=== PATIENT | female | born 1970 | race Caucasian/White ===

== ENCOUNTER 2020-07-12 06:41 | Outpatient (REF) | payer BC, SELFPAY ==
[2020-07-12 08:06] LABS: MANUAL DIFF FLAG NO
[2020-07-12 08:15] LABS: Basophils Percent Auto 0.6 % (0-2); Eosinophils Absolute Auto 0.3 X10*3/uL (0.0-0.4); Eosinophils Percent Auto 5.2 % (0-4); Hematocrit 43.3 % (37-47); Hemoglobin 14.2 g/dl (12.0-16.0); Imm Gran Abs Auto 0.02 X10*3/uL (0.00-0.03); Imm Gran Pct Auto 0.4 % (0.0-0.4); Lymphocytes Absolute Auto 1.4 X10*3/uL (1.2-4.9); Lymphocytes Percent Auto 26.3 % (20-40); Mean Corpuscular HGB Conc 32.8 g/dl (31.0-35.0); Mean Corpuscular Hemoglobin 28.7 pg (27.0-33.0); Mean Corpuscular Volume 87.7 fL (80-98); Mean Platelet Volume 9.7 fL (9.4-12.3); Monocytes Absolute Auto 0.6 X10*3/uL (0.1-1.2); Monocytes Percent Auto 11.1 % (2-11); Neutrophils Percent Auto 56.4 % (45-73); Platelet Count 345 X10*3/uL (160-400); Red Blood Count 4.94 X10*6/uL (4.20-5.50); Red Cell Distribution Width 12.9 % (11.0-16.0); White Blood Count 5.2 X10*3/uL (4.8-10.8)
[2020-07-12 08:35] LABS: Alanine Aminotransferase 22 U/L (0-31); Albumin Level 4.5 g/dL (3.5-5.0); Alkaline Phosphatase 147 U/L (39-117); Anion Gap 11 (12-20); Aspartate Amino Transferase 19 U/L (5-31); Bilirubin Total 0.6 mg/dL (0.0-1.0); Blood Urea Nitrogen 14 mg/dL (9-16); Calcium 9.7 mg/dL (8.4-10.2); Carbon Dioxide 31 mmol/L (22-29); Chloride 103 mmol/L (96-108); Cholesterol 241 mg/dL; Estimated Glomerular Filt Rate > 60; Glucose Fasting 97 mg/dL (60-99); HDL Cholesterol 53 mg/dL; LDL Cholesterol Calculated 159 mg/dl; Potassium 4.6 mmol/l (3.3-5.1); Sodium 140 mmol/L (135-145); Total Protein 7.7 g/dL (6.5-8.0); Triglycerides 147 mg/dL
[2020-07-12 09:00] LABS: Thyroid Stimulating Hormone 3.13 mIU/mL (0.32-4.0)
== END 2020-07-12 06:42 | disposition home or self-care (01) ==
LOC: HO.LAB 06:41
PROVIDERS: PCP Internal Medicine; Visit Provider Internal Medicine
DX: U07.1 COVID-19 (principal); E78.00 Pure hypercholesterolemia, unspecified; I10 Essential (primary) hypertension; R73.01 Impaired fasting glucose; R74.01 Elevation of levels of liver transaminase levels
CPT/HCPCS: 36415; 80053; 80061; 84443; 85025

== ENCOUNTER 2020-10-13 11:12 | Outpatient (REF) | payer BC, SELFPAY ==
[2020-10-13 11:48] LABS: MANUAL DIFF FLAG NO
[2020-10-13 11:58] LABS: Basophils Percent Auto 0.8 % (0-2); Eosinophils Absolute Auto 0.2 X10*3/uL (0.0-0.4); Eosinophils Percent Auto 4.3 % (0-4); Hematocrit 43.3 % (37-47); Hemoglobin 14.4 g/dl (12.0-16.0); Imm Gran Abs Auto 0.01 X10*3/uL (0.00-0.03); Imm Gran Pct Auto 0.2 % (0.0-0.4); Lymphocytes Absolute Auto 1.3 X10*3/uL (1.2-4.9); Lymphocytes Percent Auto 27.3 % (20-40); Mean Corpuscular HGB Conc 33.3 g/dl (31.0-35.0); Mean Corpuscular Hemoglobin 29.2 pg (27.0-33.0); Mean Corpuscular Volume 87.8 fL (80-98); Mean Platelet Volume 9.5 fL (9.4-12.3); Monocytes Absolute Auto 0.4 X10*3/uL (0.1-1.2); Neutrophils Absolute Auto 2.9 X10*3/uL (2.0-8.3); Neutrophils Percent Auto 58.4 % (45-73); Platelet Count 334 X10*3/uL (160-400); Red Blood Count 4.93 X10*6/uL (4.20-5.50); Red Cell Distribution Width 13.2 % (11.0-16.0); White Blood Count 4.9 X10*3/uL (4.8-10.8)
[2020-10-13 12:48] LABS: Thyroid Stimulating Hormone 1.86 uIU/mL (0.32-4.0)
[2020-10-13 13:06] LABS: Alanine Aminotransferase 30 U/L (0-31); Albumin Level 4.4 g/dL (3.5-5.0); Alkaline Phosphatase 130 U/L (39-117); Anion Gap 13 (12-20); Aspartate Amino Transferase 20 U/L (5-31); Bilirubin Total 0.8 mg/dL (0.0-1.0); Blood Urea Nitrogen 16 mg/dL (9-16); Calcium 9.5 mg/dL (8.4-10.2); Carbon Dioxide 29 mmol/L (22-29); Chloride 102 mmol/L (96-108); Cholesterol 167 mg/dL; Estimated Glomerular Filt Rate > 60; Glucose Random 101 mg/dL (60-115); HDL Cholesterol 56 mg/dL; LDL Cholesterol Calculated 91 mg/dl; Potassium 4.3 mmol/l (3.3-5.1); Sodium 140 mmol/L (135-145); Total Protein 7.7 g/dL (6.5-8.0); Triglycerides 104 mg/dL
== END 2020-10-13 11:13 | disposition home or self-care (01) ==
LOC: HO.LAB 11:12
PROVIDERS: Visit Provider Internal Medicine
DX: I10 Essential (primary) hypertension (principal); E78.00 Pure hypercholesterolemia, unspecified; R73.01 Impaired fasting glucose; R74.01 Elevation of levels of liver transaminase levels
CPT/HCPCS: 36415; 80053; 80061; 84443; 85025

== ENCOUNTER 2021-01-25 15:32 | Outpatient (REF) | payer BC, SELFPAY ==
--- NOTE | ~2021-01-25 | MM_ITS ---
EXAMINATION: MM SCREENING DIGITAL BREAST TOMOSYNTHESIS, BILATERAL CLINICAL INFORMATION: Screening. Asymptomatic. The lifetime risk of breast cancer based on the Tyrer-Cuzick Model is 15%. COMPARISON: Mammography: 05/10/2019, 11/09/2018, 11/02/2018, 10/27/2017, 09/09/2017, 06/25/2016 TECHNIQUE: Digital breast tomosynthesis is performed in both the craniocaudal and mediolateral oblique views along with computer-aided detection (CAD). Synthesized 2D images are generated from the tomosynthesis. FINDINGS: The breasts are heterogeneously dense, which may obscure small masses (ACR BI-RADS breast composition Category c). There are no significant masses, abnormal calcifications, or other abnormalities. There are scattered benign calcifications again seen in both breasts. Grouped calcification 6:00 mid left breast are decreased from prior imaging. The axilla and skin contours are unremarkable. MM/MM tomosynthesis screening BI IMPRESSION: No mammographic evidence of malignancy. ASSESSMENT: BI-RADS 2: Benign RECOMMENDATION: Routine annual mammography screening. This patient's information was entered into a reminder system with a target due date for their next mammogram.
== END 2021-01-25 15:33 | disposition home or self-care (01) ==
LOC: HO.MAMMO 15:32
PROVIDERS: PCP Internal Medicine; Visit Provider Internal Medicine
DX: Z12.31 Encounter for screening mammogram for malignant neoplasm of breast (principal)
CPT/HCPCS: 77063; 77067

== ENCOUNTER → 2021-08-21 11:39 | Outpatient (BNVA) | payer BC, SELFPAY | PROVIDERS: PCP Internal Medicine; Visit Provider Obstetrics & Gynecology ==

== ENCOUNTER 2021-09-11 12:44 | Outpatient (REF) | payer BC, SELFPAY | END 2021-09-11 12:45 | disposition home or self-care (01) | LOC: HO.LAB 12:44 | PROVIDERS: PCP Internal Medicine; Visit Provider Obstetrics & Gynecology | DX: R87.610 Atypical squamous cells of undetermined significance on cytologic smear of cervix (ASC-US) (principal); R87.810 Cervical high risk human papillomavirus (HPV) DNA test positive | CPT/HCPCS: 57454; 88305; 88342; 88360 ==

== ENCOUNTER → 2021-10-01 15:42 | Outpatient (BNVA) | payer BC, SELFPAY | PROVIDERS: PCP Internal Medicine; Visit Provider Obstetrics & Gynecology ==

== ENCOUNTER 2022-02-28 08:57 | Outpatient (REF) | payer BC, SELFPAY ==
[2022-02-28 09:14] LABS: MANUAL DIFF FLAG NO
[2022-02-28 09:24] LABS: Basophils Percent Auto 0.7 % (0-2); Eosinophils Absolute Auto 0.2 X10*3/uL (0.0-0.4); Eosinophils Percent Auto 4.1 % (0-4); Hematocrit 44.1 % (37.0-47.0); Hemoglobin 14.5 g/dl (12.0-16.0); Imm Gran Abs Auto 0.01 X10*3/uL (0.00-0.03); Imm Gran Pct Auto 0.2 % (0.0-0.4); Lymphocytes Absolute Auto 1.4 X10*3/uL (1.2-4.9); Lymphocytes Percent Auto 25.1 % (20-40); Mean Corpuscular HGB Conc 32.9 g/dl (31.0-35.0); Mean Corpuscular Hemoglobin 28.8 pg (27.0-33.0); Mean Corpuscular Volume 87.5 fL (80.0-98.0); Mean Platelet Volume 9.2 fL (9.4-12.3); Monocytes Absolute Auto 0.5 X10*3/uL (0.1-1.2); Monocytes Percent Auto 9.8 % (2-11); Neutrophils Absolute Auto 3.3 x10*3/uL (2.0-8.3); Neutrophils Percent Auto 60.1 % (45-73); Platelet Count 326 X10*3/uL (160-400); Red Blood Count 5.04 X10*6/uL (4.20-5.50); Red Cell Distribution Width 13.2 % (11.0-16.0); White Blood Count 5.4 X10*3/uL (4.8-10.8)
[2022-02-28 09:51] LABS: Alanine Aminotransferase 18 U/L (0-31); Albumin Level 4.2 g/dL (3.5-5.0); Alkaline Phosphatase 121 U/L (39-117); Anion Gap 12 (12-20); Aspartate Amino Transferase 19 U/L (5-31); Bilirubin Total 0.7 mg/dL (0.0-1.0); Blood Urea Nitrogen 21 mg/dL (9-16); Calcium 9.6 mg/dL (8.4-10.2); Carbon Dioxide 24 mmol/L (22-29); Chloride 107 mmol/L (96-108); Cholesterol 243 mg/dL; Estimated Glomerular Filt Rate > 60; Glucose Fasting 103 mg/dL (60-99); HDL Cholesterol 53 mg/dL; LDL Cholesterol Calculated 169 mg/dl; Potassium 4.2 mmol/L (3.3-5.1); Sodium 139 mmol/L (135-145); Total Protein 7.7 g/dL (6.5-8.0); Triglycerides 105 mg/dL
== END 2022-02-28 08:58 | disposition home or self-care (01) ==
LOC: HO.LAB 08:57
PROVIDERS: PCP Internal Medicine; Visit Provider Internal Medicine
DX: Z00.00 Encounter for general adult medical examination without abnormal findings (principal); E78.00 Pure hypercholesterolemia, unspecified; F32.9 Major depressive disorder, single episode, unspecified; I10 Essential (primary) hypertension; N81.10 Cystocele, unspecified
CPT/HCPCS: 36415; 80053; 80061; 85025

== ENCOUNTER 2022-06-12 14:43 | Outpatient (REF) | payer BC, SELFPAY ==
--- NOTE | ~2022-06-12 | MM_ITS ---
EXAMINATION: MM SCREENING DIGITAL BREAST TOMOSYNTHESIS, BILATERAL CLINICAL INFORMATION: Screening. Asymptomatic. The lifetime risk of breast cancer based on the Tyrer-Cuzick Model is 15%. COMPARISON: Mammography: 01/25/2021, 05/10/2019, 11/09/2018, 11/02/2018 TECHNIQUE: Digital breast tomosynthesis is performed in both the craniocaudal and mediolateral oblique views along with computer-aided detection (CAD). Synthesized 2D images are generated from the tomosynthesis. FINDINGS: The breasts are heterogeneously dense, which may obscure small masses (ACR BI-RADS breast composition Category c). There are no significant masses, abnormal calcifications, or other abnormalities. There are some scattered punctate calcifications in both breasts. Grouped calcifications mid 6:00 left breast noted in 2019 have decreased over time. The axilla and skin contours are unremarkable. MM/MM tomosynthesis screening BI IMPRESSION: No mammographic evidence of malignancy. ASSESSMENT: BI-RADS 2: Benign RECOMMENDATION: Routine annual mammography screening. This patient's information was entered into a reminder system with a target due date for their next mammogram.
== END 2022-06-12 14:44 | disposition home or self-care (01) ==
LOC: HO.MAMMO 14:43
PROVIDERS: PCP Internal Medicine; Visit Provider Internal Medicine
DX: Z12.31 Encounter for screening mammogram for malignant neoplasm of breast (principal)
CPT/HCPCS: 77063; 77067

== ENCOUNTER 2022-12-18 10:26 | Outpatient (REF) | payer BC, SELFPAY ==
[2022-12-18 10:41] LABS: MANUAL DIFF FLAG NO
[2022-12-18 11:47] LABS: Basophils Percent Auto 0.8 % (0-2); Eosinophils Absolute Auto 0.2 X10*3/uL (0.0-0.4); Eosinophils Percent Auto 4.6 % (0-4); Hematocrit 43.2 % (37.0-47.0); Hemoglobin 14.2 g/dl (12.0-16.0); Imm Gran Abs Auto 0.01 X10*3/uL (0.00-0.03); Imm Gran Pct Auto 0.2 % (0.0-0.4); Lymphocytes Absolute Auto 1.2 X10*3/uL (1.2-4.9); Lymphocytes Percent Auto 23.7 % (20-40); Mean Corpuscular HGB Conc 32.9 g/dl (31.0-35.0); Mean Corpuscular Hemoglobin 29.2 pg (27.0-33.0); Mean Corpuscular Volume 88.7 fL (80.0-98.0); Mean Platelet Volume 9.4 fL (9.4-12.3); Monocytes Absolute Auto 0.5 X10*3/uL (0.1-1.2); Monocytes Percent Auto 9.4 % (2-11); Neutrophils Absolute Auto 3.1 x10*3/uL (2.0-8.3); Neutrophils Percent Auto 61.3 % (45-73); Platelet Count 327 X10*3/uL (160-400); Red Blood Count 4.87 X10*6/uL (4.20-5.50); Red Cell Distribution Width 13.3 % (11.0-16.0)
[2022-12-18 12:21] LABS: Alanine Aminotransferase 33 U/L (0-31); Albumin Level 4.6 g/dL (3.5-5.0); Alkaline Phosphatase 138 U/L (39-117); Anion Gap 15 (12-20); Aspartate Amino Transferase 22 U/L (5-31); Bilirubin Total 0.8 mg/dL (0.0-1.0); Blood Urea Nitrogen 11 mg/dL (9-16); Carbon Dioxide 28 mmol/L (22-29); Chloride 103 mmol/L (96-108); Cholesterol 167 mg/dL; Estimated Glomerular Filt Rate > 60; Glucose Random 91 mg/dL (60-115); HDL Cholesterol 58 mg/dL; LDL Cholesterol Calculated 83 mg/dl; Potassium 4.2 mmol/L (3.3-5.1); Sodium 142 mmol/L (135-145); Thyroid Stimulating Hormone 8.83 uIU/mL (0.32-4.0); Total Protein 7.7 g/dL (6.5-8.0); Triglycerides 130 mg/dL
== END 2022-12-18 10:27 | disposition home or self-care (01) ==
LOC: HO.LAB 10:26
PROVIDERS: PCP Internal Medicine; Visit Provider Internal Medicine
DX: Z00.00 Encounter for general adult medical examination without abnormal findings (principal); E78.00 Pure hypercholesterolemia, unspecified; I10 Essential (primary) hypertension; R13.19 Other dysphagia
CPT/HCPCS: 36415; 80053; 80061; 84443; 85025

== ENCOUNTER 2023-02-11 14:17 | Outpatient (REF) | payer BC, SELFPAY ==
[2023-02-11 17:02] LABS: Thyroid Stimulating Hormone 7.87 uIU/mL (0.32-4.0)
== END 2023-02-11 14:18 | disposition home or self-care (01) ==
LOC: HO.LAB 14:17
PROVIDERS: PCP Internal Medicine; Visit Provider Internal Medicine
DX: Z01.419 Encounter for gynecological examination (general) (routine) without abnormal findings (principal); E03.8 Other specified hypothyroidism; I10 Essential (primary) hypertension; N30.01 Acute cystitis with hematuria
CPT/HCPCS: 36415; 84443

== ENCOUNTER 2023-02-11 15:04 | Outpatient (REF) | payer BC, SELFPAY ==
[2023-02-14 04:18] LABS: HPV mRNA E6/E7 rflx Not Detected (Not Detected)
== END 2023-02-11 15:05 | disposition home or self-care (01) ==
LOC: HO.LNP 15:04
PROVIDERS: Visit Provider Obstetrics & Gynecology
DX: Z01.419 Encounter for gynecological examination (general) (routine) without abnormal findings (principal); R87.610 Atypical squamous cells of undetermined significance on cytologic smear of cervix (ASC-US); R87.810 Cervical high risk human papillomavirus (HPV) DNA test positive
CPT/HCPCS: 87624; 88142

== ENCOUNTER 2023-07-21 10:17 | Outpatient (REF) | payer OTHER, SELFPAY ==
--- NOTE | ~2023-07-21 | FL_ITS ---
EXAMINATION: FL BARIUM SWALLOW CLINICAL INFORMATION: Dysphagia COMPARISON: None available. TECHNIQUE: Barium swallow examination is performed using fluoroscopic evaluation in addition to multiple fluoroscopic spot views. The patient is imaged both upright and prone and using both thick and thin sulfate along with effervescent granules. Barium tablet was also administered. Fluoroscopy time: 48 seconds DAP: 49 dGycm2 Images: 24 images FINDINGS: The swallowing mechanism is normal. No aspiration or penetration is seen. There is mild gastroesophageal reflux. There is slight mucosal irregularity questionable mild distal esophagitis. Esophageal motility is normal. No hernia, mass or stricture is seen. There was temporary stasis of the barium tablet the GE junction. FL/FL barium swallow IMPRESSION: Gastroesophageal reflux and question mild distal esophagitis.
== END 2023-07-21 10:18 | disposition home or self-care (01) ==
LOC: HO.XRAY 10:17
PROVIDERS: PCP Internal Medicine; Visit Provider Otolaryngology
DX: R13.10 Dysphagia, unspecified (principal)
CPT/HCPCS: 74220

== ENCOUNTER → 2023-07-21 10:25 | Outpatient (BNV) | payer BC, SELFPAY | PROVIDERS: PCP Internal Medicine; Visit Provider Radiology Diagnostic Radiology | DX: R13.10 Dysphagia, unspecified (principal) | CPT/HCPCS: 74221 ==

== ENCOUNTER 2023-11-07 13:39 | Outpatient (AMB) | payer OTHER, SELFPAY ==
[2023-11-07 13:38] VITALS: BP 130/80; PULSE 73; TEMP 36.6; O2SAT 99; BMI 23.6
--- NOTE | 2023-11-07 13:38 | MHC.OFFWIV ---
Intake Vital Signs 11/07/23 13:38 Height 5 ft 2 in Weight 129 lb BMI 23.6 BP 130/80 Blood Pressure Location Rt brachial Position Sitting Pulse 73 Pulse Source Pulse Oximeter Temp 97.9 F Temp Source Oral Pulse Oximetry (%) 99 Oxygen Delivery Method Room Air Intake Visit Reasons: EST/right foot pain (lobby) Intake Note: Pt is here c/o right foot pain. Pt states no falls or injuries. 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 Sexual orientation: Straight/Heterosexual Gender identity: Female Female Reproductive History Menstrual Age of Menarche: 19 Review of Systems Const All systems reviewed & are unremarkable except as noted in HPI and below Physical Exam Vital Signs: Last Vital Signs Temp 97.9 F 11/07/23 13:38 Pulse 73 11/07/23 13:38 BP 130/80 11/07/23 13:38 Pulse Ox 99 11/07/23 13:38 Oxygen Delivery Method Room Air 11/07/23 13:38 BMI result Body Mass Index 23.6 Const Orientation/consciousness: patient oriented x3 Neuro General: patient oriented x3, gait normal, moves all extremities and no focal motor deficits Motor exam (neuro): 5/5 motor strength present throughout Extrem General: Yes normal to inspection and Yes full ROM Right lower extremity: normal to inspection, full ROM, normal capillary refill, no joint enlargement and foot Details: normal capillary refill, normal to inspection and no edema; no tenderness; no cyanosis and no edema Left lower extremity: normal to inspection and full ROM Assessment & Plan Assessment & Plan (1) Plantar fasciitis of right foot: Code(s): M72.2 - Plantar fascial fibromatosis Plan: - Ibuprofen/Acetaminophen for pain relief - Rest feet - Foot massage - Comfortable shoes at work - Ice/heat on/off - F/U with PCP if pain not better - Might benefit from PT Medications: New naproxen 500 mg PO BID PRN 30 tabs 0RF pain M72.2 - Plantar fascial fibromatosis Coding Level of Care Code Est Pt Level 3 (85310) Diagnoses Plantar fasciitis of right foot M72.2 Time Spent (min) 15
== END 2023-11-07 16:10 | disposition home or self-care (01) ==
PROVIDERS: PCP Internal Medicine; Visit Provider Nurse Practitioner Family
DX: M72.2 Plantar fascial fibromatosis (principal)
CPT/HCPCS: 99213

== ENCOUNTER 2023-11-15 09:08 | Outpatient (REF) | payer OTHER, SELFPAY ==
[2023-11-15 09:45] LABS: MANUAL DIFF FLAG NO
[2023-11-15 10:35] LABS: Basophils Percent Auto 0.8 % (0-2); Eosinophils Absolute Auto 0.2 X10*3/uL (0.0-0.4); Eosinophils Percent Auto 4.5 % (0-4); Hematocrit 45.3 % (37.0-47.0); Hemoglobin 15.3 g/dl (12.0-16.0); Imm Gran Abs Auto 0.02 X10*3/uL (0.00-0.03); Imm Gran Pct Auto 0.4 % (0.0-0.4); Lymphocytes Absolute Auto 1.4 X10*3/uL (1.2-4.9); Lymphocytes Percent Auto 28.2 % (20-40); Mean Corpuscular HGB Conc 33.8 g/dl (31.0-35.0); Mean Corpuscular Hemoglobin 29.4 pg (27.0-33.0); Mean Corpuscular Volume 86.9 fL (80.0-98.0); Mean Platelet Volume 9.5 fL (9.4-12.3); Monocytes Absolute Auto 0.4 X10*3/uL (0.1-1.2); Monocytes Percent Auto 8.2 % (2-11); Neutrophils Absolute Auto 2.8 x10*3/uL (2.0-8.3); Neutrophils Percent Auto 57.9 % (45-73); Platelet Count 359 X10*3/uL (160-400); Red Blood Count 5.21 X10*6/uL (4.20-5.50); White Blood Count 4.9 X10*3/uL (4.8-10.8)
[2023-11-15 11:16] LABS: Alanine Aminotransferase 26 U/L (0-31); Albumin Level 4.5 g/dL (3.5-5.0); Alkaline Phosphatase 136 U/L (39-117); Anion Gap 9 (12-20); Aspartate Amino Transferase 22 U/L (5-31); Bilirubin Total 0.6 mg/dL (0.0-1.0); Blood Urea Nitrogen 12 mg/dL (9-16); Calcium 10.2 mg/dL (8.4-10.2); Carbon Dioxide 30 mmol/L (22-29); Chloride 104 mmol/L (96-108); Cholesterol 207 mg/dL (<200); Estimated Glomerular Filt Rate > 60; Glucose Random 92 mg/dL (60-115); HDL Cholesterol 59 mg/dL (>40); LDL Cholesterol Calculated 121 mg/dL (<100); Potassium 4.1 mmol/L (3.3-5.1); Sodium 139 mmol/L (135-145); Total Protein 8.1 g/dL (6.5-8.0); Triglycerides 136 mg/dL (<150)
[2023-11-15 11:32] LABS: Thyroid Stimulating Hormone 9.24 uIU/mL (0.32-4.0)
== END 2023-11-15 09:09 | disposition home or self-care (01) ==
LOC: HO.LAB 09:08
PROVIDERS: PCP Internal Medicine; Visit Provider Internal Medicine
DX: E03.8 Other specified hypothyroidism (principal); E78.00 Pure hypercholesterolemia, unspecified; G47.00 Insomnia, unspecified; I10 Essential (primary) hypertension
CPT/HCPCS: 36415; 80053; 80061; 84443; 85025

== ENCOUNTER 2023-11-15 11:32 | Outpatient (REF) | payer OTHER, SELFPAY | END 2023-11-15 11:33 | disposition home or self-care (01) | LOC: HO.10HDLNP 11:32 | PROVIDERS: Visit Provider Internal Medicine | DX: R10.13 Epigastric pain (principal) | CPT/HCPCS: 87338 ==

== ENCOUNTER 2023-12-24 14:21 | Outpatient (REF) | payer OTHER, SELFPAY ==
--- NOTE | ~2023-12-24 | MM_ITS ---
EXAMINATION: MM SCREENING DIGITAL BREAST TOMOSYNTHESIS, BILATERAL CLINICAL INFORMATION: Screening. Asymptomatic. COMPARISON: Mammography: This study is compared with prior exams dating back to 2018. TECHNIQUE: Digital breast tomosynthesis is performed in both the craniocaudal and mediolateral oblique views along with computer-aided detection (CAD). Synthesized 2D images are generated from the tomosynthesis. FINDINGS: The breasts are heterogeneously dense, which may obscure small masses (ACR BI-RADS breast composition Category c). There are no significant masses, abnormal calcifications, or other abnormalities. Few, bilateral, unchanged, benign calcifications are present. MM/MM tomosynthesis screening BI IMPRESSION: No mammographic evidence of malignancy. ASSESSMENT: BI-RADS BI-RADS 2 - Benign Findings RECOMMENDATION: Routine annual mammography screening. 1 year F/U This examination should not preclude the clinical evaluation of a suspicious palpable abnormality. This patient's information was entered into a reminder system with a target due date for their next mammogram.
== END 2023-12-24 14:22 | disposition home or self-care (01) ==
LOC: HO.MAMMO 14:21
PROVIDERS: PCP Internal Medicine; Visit Provider Internal Medicine
DX: Z12.31 Encounter for screening mammogram for malignant neoplasm of breast (principal)
CPT/HCPCS: 77063; 77067

== ENCOUNTER → 2023-12-24 14:30 | Outpatient (BNV) | payer OTHER, SELFPAY | PROVIDERS: PCP Internal Medicine; Visit Provider Radiology Diagnostic Radiology | DX: Z12.31 Encounter for screening mammogram for malignant neoplasm of breast (principal) | CPT/HCPCS: 77063; 77067 ==

== ENCOUNTER 2024-02-13 06:45 | Day surgery (SDC) | payer OTHER, SELFPAY ==
[2024-02-12 06:48] VITALS: BMI 22.1
--- NOTE | 2024-02-12 10:56 | P.CONAN_ITS ---
Documented by User: Emili Inman NP 02/12/24 10:57 HPI - Anesthesia Eval Consult details Narrative: 53yo F for Upper Endoscopy and Colonoscopy PMFSH Active Problems Active Problems: All Active Problems Well woman exam (Acute) Sore throat (Acute) ASCUS with positive high risk HPV cervical (Acute) Past Medical History Medical History GERD (gastroesophageal reflux disease) Urinary incontinence Thyroid disease Dysplasia of cervix, low grade (JONES 1) High cholesterol Hypertension Family History Family History Mother Breast CA HTN (hypertension) Maternal Grandmother Diabetes Maternal Uncle Skin cancer Surgical History Surgical History Hx of dilation and curettage Social History Social History Household Members: Spouse Housing: Apartment Alcohol intake: former Patient Tobacco Use Status: Former Tobacco user Quit Date: 5 years Use of substances other than those prescribed or required for medical reasons: No Are you DNR?: No Advance Directives: No Advance Directives Information Provided: Yes Current occupational status: employed 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 Sexual orientation: Straight/Heterosexual Gender identity: Female Meds Allergies Allergy/AdvReac Type Severity Reaction Status Date / Time No Known Allergies Allergy Verified 11/07/23 14:04 Home Medications ?Medication ?Instructions ?Recorded ?Confirmed ?Last Taken ?Type levothyroxine 50 mcg tablet 50 mcg PO DAILY 02/12/24 02/12/24 Unknown History multivitamin 1 tab PO DAILY 02/12/24 02/12/24 Unknown History omeprazole 20 mg capsule,delayed 20 mg PO DAILY 02/12/24 02/12/24 Unknown History release rosuvastatin 40 mg tablet 40 mg PO DAILY 02/12/24 02/12/24 Unknown History Exam Height,Weight and Vital Signs: Height 5 ft 2 in Weight 54.885 kg Assessment and Plan Assessment Anesthesia Assessment: Chart Reviewed Documented by User: Shanna Luna MD 02/13/24 07:44 PMFSH Past Medical History Medical History GERD (gastroesophageal reflux disease) Urinary incontinence Thyroid disease Dysplasia of cervix, low grade (JONES 1) High cholesterol Hypertension Family History Family History Mother Breast CA HTN (hypertension) Maternal Grandmother Diabetes Maternal Uncle Skin cancer Surgical History Surgical History Hx of dilation and curettage History of Problems with Anesthesia: No Social History Social History Household Members: Spouse Housing: Apartment Alcohol intake: former Patient Tobacco Use Status: Former Tobacco user Quit Date: 5 years Use of substances other than those prescribed or required for medical reasons: No Are you DNR?: No Advance Directives: No Advance Directives Information Provided: Yes Current occupational status: employed 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 Sexual orientation: Straight/Heterosexual Gender identity: Female Meds Allergies Allergy/AdvReac Type Severity Reaction Status Date / Time No Known Allergies Allergy Verified 11/07/23 14:04 Home Medications ?Medication ?Instructions ?Recorded ?Confirmed ?Last Taken ?Type levothyroxine 50 mcg tablet 50 mcg PO DAILY 02/12/24 02/12/24 Unknown History multivitamin 1 tab PO DAILY 02/12/24 02/12/24 Unknown History omeprazole 20 mg capsule,delayed 20 mg PO DAILY 02/12/24 02/12/24 Unknown History release rosuvastatin 40 mg tablet 40 mg PO DAILY 02/12/24 02/12/24 Unknown History Exam Airway Mallampati Class: II TM Dist: >3cm Neck ROM: Full Loose/Missing/Broken Teeth: No Heart: RRR Lungs: CTA Assessment and Plan Assessment Anesthesia Assessment: Anesthesia Plan Discussed Final Anesthetic Review History of Problems with Anesthesia: No NPO: Yes ASA Class: II Final Preanesthetic Review: Meds/Allgs Chart Reviewed, Consent Obtained/Reviewed and Anes Risks/Benef Reviewed Patient Risk: Low Procedure Risk: Low Anesthetic Plan Anesthetic Plan: MAC: Disposition: Standard PACU
[2024-02-13 07:08] VITALS: BP 138/78; PULSE 65; RESP 18; TEMP 36.3; O2SAT 98; BMI 21.6
[2024-02-13 07:17] VITALS: BMI 21.6
[2024-02-13] MEDS: Lactated Ringers 1,000 ML 100 ML IVCONT (07:46)
--- NOTE | 2024-02-13 08:07 | P.HPSUR_ITS ---
Pre-Procedural Eval Section A - 24 Hr Update-Section A only Date of Service: 02/13/24 Section B - Complete if H&P > 30 days Chief Complaint: Gastro-esophageal reflux disease without esophagit Details of Present Illness: see H&P no changes Relevant Family History (Specify if Yes): No Relevant Social History: None Present Medications: see Short Stay Collaborative assessment Medical History: No relevant PMH History of Previous Operations: No relevant previous surgery Allergies: Allergies Allergy/AdvReac Type Severity Reaction Status Date / Time No Known Allergies Allergy Verified 02/13/24 07:47 Review of Systems Sugical H&P ROS: Negative: Constitution, Cardiovascular, Respiratory, Neurological, Psychiatric, Hem-Onc, Allergic/Immunologic, Gastrointestinal, Genitourinary, Musculoskeletal, Integumentary, Endocrine and Eyes/Ears/N ose/Throat Exam Surgical H&P Exam: Normal: HEENT, Normal: Heart, Normal: Lungs, Normal: Extremities, Normal: Abdomen, Normal: Skin and Normal: Neurological Plan Diagnosis/Plan: Unchanged I have reviewed the history and physical and performed a pertinent physical examination on my patient. No changes have occurred unless specified. Time Spent With Patient Time: Total time managing care of this patient today ____ minutes.
[2024-02-13 09:03] VITALS: BP 122/66; PULSE 58; RESP 18; TEMP 36.6; O2SAT 100
[2024-02-13 09:21] VITALS: BP 146/77; PULSE 57; RESP 16; TEMP 36.6; O2SAT 100
--- NOTE | 2024-02-13 10:54 | OP_ITS ---
DATE OF SERVICE: 02/13/2024 SURGEON: Isaías Ingram MD INDICATIONS: 1. Gastroesophageal reflux disease. 2. Colon cancer screening. 3. H. pylori infection. PREOPERATIVE DIAGNOSIS: POSTOPERATIVE DIAGNOSIS: PROCEDURE PERFORMED: ESTIMATED BLOOD LOSS: COMPLICATIONS: ANESTHESIA: ASSISTANTS: SPECIMENS: PROCEDURES PERFORMED: Upper endoscopy with biopsy and colonoscopy to the terminal ileum with biopsy. MEDICATIONS: Monitored anesthesia. PROCEDURE DESCRIPTION: The history and physical performed. The risks and benefits of the procedure were explained to the patient and informed consent was obtained. The patient was placed in the left lateral decubitus position. The Olympus video gastroscope was introduced through the esophagus to the stomach and duodenum. Examination was performed and the scope was removed. She was repositioned for the colonoscopy. A digital rectal examination was performed and found to be normal. The Olympus pediatric video colonoscope was introduced through the anus to the rectum and advanced to the cecum. The cecum was identified by translumination, palpation, identification of the ileocecal valve. Examination was performed. The scope was removed. She tolerated both procedures well and transferred to the recovery room in stable condition. FINDINGS: UPPER ENDOSCOPY: Esophagus: Esophagus was normal. Biopsies were obtained from the EG junction. Stomach: The stomach showed patchy erythema consistent with mild gastritis, mainly in the body. Enteral biopsies were obtained because of the patient's history of previous H. pylori infection. Duodenum: The bulb and second portion were normal. COLONOSCOPY: The terminal ileum was identified and appeared normal. The visualized colonic mucosa was normal. Two polyps were identified and removed with the biopsy forceps, both measured less than 10 mm. These were located at 90 cm and 70 cm. No other polyps were identified. There were some liquid stool limiting the sensitive examination for the textures and small polyps. Retroflex examination was normal. IMPRESSION: 1. Gastritis. 2. Colon polyps. RECOMMENDATIONS: Followup the biopsy results. MD AUBRIE Reyes/RAHULL / [id number]
== END 2024-02-13 09:32 | disposition home or self-care (01) ==
PROVIDERS: PCP Internal Medicine; Visit Provider Internal Medicine Gastroenterology
PROC: (CPT 45380; principal; 2024-02-13 08:20)
DX: Z12.11 Encounter for screening for malignant neoplasm of colon (principal); D12.6 Benign neoplasm of colon, unspecified; K63.5 Polyp of colon; K21.9 Gastro-esophageal reflux disease without esophagitis; K29.70 Gastritis, unspecified, without bleeding; I10 Essential (primary) hypertension; Z86.19 Personal history of other infectious and parasitic diseases
CPT/HCPCS: 45380; 43239; 88305; 88313; 88342; J2704

== ENCOUNTER 2024-02-18 09:15 | Outpatient (REF) | payer OTHER, SELFPAY ==
[2024-02-18 10:29] LABS: Cholesterol 139 mg/dL (<200); HDL Cholesterol 57 mg/dL (>40); LDL Cholesterol Calculated 67 mg/dL (<100); Triglycerides 78 mg/dL (<150)
[2024-02-18 10:39] LABS: Thyroid Stimulating Hormone 2.65 uIU/mL (0.32-4.0)
== END 2024-02-18 09:16 | disposition home or self-care (01) ==
LOC: HO.LAB 09:15
PROVIDERS: PCP Internal Medicine; Visit Provider Internal Medicine
DX: Z00.00 Encounter for general adult medical examination without abnormal findings (principal); B96.81 Helicobacter pylori [H. pylori] as the cause of diseases classified elsewhere; E03.8 Other specified hypothyroidism; F32.9 Major depressive disorder, single episode, unspecified; Z80.3 Family history of malignant neoplasm of breast
CPT/HCPCS: 36415; 80061; 84443

== ENCOUNTER 2024-08-20 06:22 | Outpatient (REF) | payer OTHER, SELFPAY ==
[2024-08-20 08:03] LABS: Alanine Aminotransferase 27 U/L (0-31); Albumin Level 4.2 g/dL (3.5-5.0); Alkaline Phosphatase 113 U/L (39-117); Anion Gap 8 (12-20); Aspartate Amino Transferase 21 U/L (5-31); Bilirubin Total 0.6 mg/dL (0.0-1.0); Blood Urea Nitrogen 12 mg/dL (9-16); Carbon Dioxide 29 mmol/L (22-29); Chloride 105 mmol/L (96-108); Estimated Glomerular Filt Rate > 60; Glucose Random 89 mg/dL (60-115); Potassium 3.3 mmol/L (3.3-5.1); Sodium 139 mmol/L (135-145); Total Protein 7.2 g/dL (6.5-8.0)
== END 2024-08-20 06:23 | disposition home or self-care (01) ==
LOC: HO.LAB 06:22
PROVIDERS: PCP Internal Medicine; Visit Provider Internal Medicine
DX: E03.8 Other specified hypothyroidism (principal); F40.243 Fear of flying; Z68.20 Body mass index [BMI] 20.0-20.9, adult; Z80.3 Family history of malignant neoplasm of breast
CPT/HCPCS: 36415; 80053; 84443

== ENCOUNTER 2024-12-03 11:48 | Outpatient (AMB) | payer OTHER, SELFPAY ==
[2024-12-03 11:57] VITALS: BP 128/88; PULSE 87; TEMP 36.7; O2SAT 98
--- NOTE | 2024-12-03 11:57 | AM.OFFWIN_ITS ---
Intake Vital Signs 12/03/24 11:57 Weight 116 lb BP 128/88 Blood Pressure Location Rt brachial Position Sitting Pulse 87 Pulse Source Pulse Oximeter Temp 98.1 F Temp Source Oral Pulse Oximetry (%) 98 Oxygen Delivery Method Room Air Intake Visit Reasons: EP vomiting, diarrhea, body aches Intake Note: Patient here vomiting and diarrhea that started last week. Patient Tobacco Use Status: Former Tobacco user Allergies No Known Allergies Allergy (Verified 12/03/24 12:03) Do you need a note to return to daycare/school/sports/work: Yes HPI HPI Comments History of Present Illness Details This is a 53-year-old female who presented to the walk-in clinic complaining of nausea/vomiting/diarrhea x 1 week. Patient states she developed several episodes of nausea/vomiting and diarrhea daily about 10 days ago. She states this lasted for about 2 days and then resolved without intervention. She states that her nausea/vomiting and diarrhea then returned again 3 days ago. She denies any unusual or abnormal food exposures. She denies any recent medication changes or antibiotic use. She denies any positive sick contacts with similar symptoms. She denies any recent travel prior to her symptom onset. She denies any melena/hematochezia or hematemesis. She denies any fever/chills but states that she does get diaphoretic with the vomiting. She reports some mild epigastric pain but denies any significant abdominal pain. She states she has had a difficult time keeping solids and liquids down due to her symptoms and she is feeling weak and fatigued. She denies history of abdominal surgeries. 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 Sexual orientation: Straight/Heterosexual Gender identity: Female Female Reproductive History Menstrual Age of Menarche: 19 Review of Systems Const All systems reviewed & are unremarkable except as noted in HPI and below Reports no additional complaints Eyes Reports no additional complaints ENT Reports no additional complaints Card Reports no additional complaints Resp Reports no additional complaints GI Reports no additional complaints Reports no additional complaints Musc Reports no additional complaints Skin/Breast Reports system reviewed and no additional complaints, except as documented Neuro Reports no additional complaints Psych Reports no additional complaints Endo Reports no additional complaints Pedro Luis/Lymph Reports no additional complaints Aller/Immun Reports no additional complaints Physical Exam Vital Signs: Last Vital Signs Temp 98.1 F 12/03/24 11:57 Pulse 87 12/03/24 11:57 BP 128/88 12/03/24 11:57 Pulse Ox 98 12/03/24 11:57 Oxygen Delivery Method Room Air 12/03/24 11:57 Const Other: Vital signs reviewed. Constitutional: Non-toxic appearing. No acute distress. Well-developed and well-nourished. HEENT: Normocephalic and atraumatic. Skin: Warm and dry. No rashes or lesions noted. Neck: Full and painless range of motion. No cervical lymphadenopathy. Cardio: Regular rate and rhythm. No murmurs, gallops, or rubs. No lower extremity edema. No JVD. Pulmonary: No respiratory distress. No accessory muscle usage. Clear to auscultation bilaterally without wheezing, crackles, or rhonchi. Gastrointestinal: Soft, non-tender, and non-distended in all 4 quadrants. Hypoactive bowel sounds in all 4 quadrants. Musculoskeletal: Normal range of motion in joints throughout the body. No deformity or other signs of injury. Neuro: Alert and oriented x4. Cranial nerves 2-12 grossly intact. No focal deficits appreciated. Psych: Normal mood and affect. Office Meds ondansetron 4 mg disintegrating tablet Performing Provider: ALVIN Flores Performing Location[place] [facility] Administered by: ALVIN Flores on 12/03/24 12:40 Dose Route Admin Location Dispensed Lot Number Expiration Date [place] Over[employer] Sleeve Setter 4 mg translingual 4 mg 01/05/28 [id number] [facility] Assessment & Plan Assessment & Plan (1) Viral gastroenteritis: Code(s): A08.4 - Viral intestinal infection, unspecified Plan: This is a 53-year-old female who presented to the walk-in clinic complaining of nausea/vomiting/diarrhea for the past 3 days. She denies any melena/hematochezia, abdominal pain, or fever/chills. On physical examination, she has hypoactive bowel sounds but her abdomen is soft, non-tender, and non- distended. History and physical most consistent with viral gastroenteritis. Low suspicion for bowel obstruction given patient continues to have bowel movements. Low suspicion for acute abdomen such as acute appendicitis, cholecystitis, or pancreatitis given benign abdominal exam and lack of fever/chills and abdominal pain. Patient was given a dose of PO ondansetron 4 mg in the office and she was able to keep water down with improvement in her symptoms. She was sent to the lab to provide stool sample for a GI Panel and she will be called with the results. She was given a prescription for p.o. ondansetron 8 mg every 8 hours as needed for nausea/vomiting. She was also given a prescription for p.o. famotidine 20 mg every night at bedtime given complaints of epigastric pain, which is likely related to persistent vomiting. She was instructed to maintain adequate hydration with water, sports drinks, or bone/chicken broth and advance her diet slowly as tolerated. She was instructed to proceed directly to the emergency room if she were to develop constipation/obstipation, fever/chills, abdominal pain, melena/hematochezia, or if she is still unable to keep solids/liquids down despite anti-emetic treatment. Patient verbalized understanding and is agreeable with the plan. Orders: Orders AMB Ondansetron Adult Dose Today K52.9 - Noninfective gastroenteritis and colitis, unspecified GI Panel Today K52.9 - Noninfective gastroenteritis and colitis, unspecified Medications: New ondansetron 8 mg PO Q8H PRN 14 tabs 0RF nausea and vomiting famotidine 20 mg PO BEDTIME 14 tabs 0RF Coding Level of Care Code Est Pt Level 3 (89684) Diagnoses Viral gastroenteritis A08.4
--- OUTSIDE RECORDS SUMMARY | 2024-12-03 14:08 | XMS_ITS ---
Author Organization [facility] Address [address] [place] [address] Care Team Providers Care Networker Name Role Phone Johana Gay Primary Care Provider Unavailab Isaías Canela Jr REASON FOR VISIT screening,gerd PROBLEMS Problem Type ICD Code Onset Dates Problem Status W/U Status Risk SNOMED Code Notes Problem Gastro-esophagea l reflux disease without esophagitis (K21.9) Active confirmed Gastro-esophage al reflux disease without esophagitis ([id number]) Encounters Encounter Location Date Provider Diagnosis [facility] Out[facility] [address], [place] [id number] 02/13/2024 Isaías Ingram Jr Encounter for screening colonoscopy Z12.11 ; Colon polyps K63.5 ; Other specified bacterial intestinal infections A04.8 and Gastro-esophageal reflux disease without esophagitis K21.9 ASSESSMENTS Encounter Date Diagnosis Assessment Notes Treatment Notes Treatment Clinical Notes 02/13/2024 Encounter for screening colonoscopy (ICD-10 - Z12.11) 02/13/2024 Colon polyps (ICD-10 - K63.5) 02/13/2024 Other specified bacterial intestinal infections (ICD-10 - A04.8) 02/13/2024 Gastro-esophageal reflux disease without esophagitis (ICD-10 - K21.9) PLAN OF TREATMENT No Information
--- OUTSIDE RECORDS SUMMARY | 2024-12-03 14:08 | XMS_ITS | Patient Health Record ---
Author Organization [facility] Address [address] [place] [address] Care Team Providers Care Butadiene Converter Operator Name Role Phone Deidra Johana Primary Care Provider UnavailsIaías Zaragoza Jr Unavailable ALLERGIES No Known Allergies RESULTS Component Value Reference Range Notes Pathology Reviewed date:02/19/2024 10:48:03 AM Interpretation: Performing Lab:[facility], [address] [place] [phone] Notes/Report: REASON FOR REFERRAL No Information MEDICATIONS Medication SIG (Take, Route, Frequency, Duration) Notes Start Date End Date Status Rosuvastatin Calcium 40 MG TAKE 1 TABLET BY MOUTH EVERY DAY Oral for 30 Active Levothyroxine Sodium 50 MCG TAKE 1 TABLE T BY MOUTH EVERY DAY Oral for 30 Active Omeprazole 20 MG TAKE 1 CAPSULE BY MO UTH EVERY DAY Oral for 30 Active Multi Vitamin - 1 tablet Orally Once a day for 30 day(s) 01/05/2024 Active IMMUNIZATIONS Vaccine Route Administration Date Status Comme nts Influenza Unknown 07/29/2023 Administered SOCIAL HISTORY Tobacco Use: Social History Observation Description Date Details (start date - stop date) Never Smoker NA - NA Sex Assigned At : Social History Observation Description Sex Assigned At Unknown Tobacco Use/Smoking Question Answer Notes Patient is a nonsmoker Alcohol Screen Question Answer Notes Did you have a drink containing alcohol in the p ast year? No Points 0 Interpretation Negative PROBLEMS Problem Type ICD Code Onset Dates Problem Status W/U Status Risk SNOMED Code Notes Problem Colon cancer screening (Z12.11) Active confirmed 315420271 Problem Gastro-esophageal reflux disease without esophagitis (K21.9) Active confirmed Gastro-esophag eal reflux disease without esophagitis (678149340) Problem Gastroesophageal reflux disease without esophagitis (K21.9) Active confirmed 275574375 Problem Abnormal barium swallow (R93.3) Active confirmed 976949697 Problem H. pylori infection (A04.8) Active confirmed 958967522 VITAL SIGNS Temperature 98.0 degrees Fahrenheit 01/05/2024 Blood pressure diastolic 00 mm Hg 01/05/2024 Height 5 ft 2 in in 01/05/2024 Blood pressure systolic 000 mm Hg 01/05/2024 Weight 121 lb 8 oz lbs 01/05/2024 BMI 22.22 kg/m2 01/05/2024 Encounters Encounter Location Date Provider Diagnosis [facility] [place] [address] [place] [id number] 02/13/2024 Isaías Ingram Jr Encounter for screening colonoscopy Z12.11 ; Colon polyps K63.5 ; Other specified bacterial intestinal infections A04.8 and Gastro-esophageal reflux disease without esophagitis K21.9 [facility] [address] [place] [phone] 02/20/2024 Isaías Ingram Jr [facility] [address] [place] [phone] 01/05/2024 Isaías Ingram Jr Gastroesophageal reflux disease without esophagitis K21.9 ; Colon cancer screening Z12.11 ; H. pylori infection A04.8 and Abnormal barium swallow R93.3 [facility] [address] [address] 01/15/2024 Isaías Ingram Jr [facility] [address] [place] [phone] 01/15/2024 Isaías Ingram Jr [facility] [address] [place] [phone] 02/19/2024 Isaías Ingram Jr ASSESSMENTS Encounter Date Diagnosis Assessment Notes Treatment Notes Treatment Clinical Notes 02/13/2024 Encounter for screen ing colonoscopy (ICD-10 - Z12.11) 02/13/2024 Colon polyps (ICD-10 - K63.5) 01/05/2024 Colon cancer screeni ng (ICD-10 - Z12.11) 01/05/2024 Gastroesophageal ref lux disease without esophagitis (ICD-10 - K21.9) Endoscopy material was printed 02/13/2024 Other specified bacterial intestinal infections (ICD-10 - A04.8) 01/05/2024 H. pylori infection (ICD-10 - A04.8) 02/13/2024 Gastro-esophageal reflux disease without esophagitis (ICD-10 - K21.9) 01/05/2024 Abnormal barium swal low (ICD-10 - R93.3) PLAN OF TREATMENT Future Test Test Name Order Date UPPER GI ENDOSCOPY 01/05/2024 COLONOSCOPY 01/05/2024 Insurance Providers Payer Name Payer Address Payer Phone Subscriber Number Group Number Insured Name Patient Relationship to Insured Coverage Start Date Coverage End Date Chilean Plan Reservations Manager s [address] [place] [id number] RAHEEM DOUGLAS Self - patient is the insured MEDICAL (GENERAL) HISTORY Medical History History ICD Code Hypertension Hyperlipidemia Urinary incontinence Hypothyroidism Gastroesophageal reflux disease Surgical History Surgery Date(Month/Year)
--- OUTSIDE RECORDS SUMMARY | 2024-12-03 14:08 | XMS_ITS ---
Author Organization [facility] Address [address] [place] [address] Care Team Providers Care Net Developer With Wcf Name Role Phone Johana Gay Primary Care Provider Unavailab Isaías Canela Jr REASON FOR VISIT SCREENING COLON, EPIGASTRIC PAIN Encounters Encounter Location Date Provider Diagnosis [facility] [address] [place] [address] 02/20/2024 Isaías Ingram Jr PLAN OF TREATMENT No Information
--- OUTSIDE RECORDS SUMMARY | 2024-12-03 14:08 | XMS_ITS ---
Author Organization [facility] Address [address] [place] [address] Care Team Providers Care Counter Supply Worker Name Role Phone Johana Gay Primary Care Provider Unavailab Isaías Canela Jr REASON FOR VISIT pathology Encounters Encounter Location Date Provider Diagnosis [facility] [address] [place] [address] 02/19/2024 Isaías Ingram Jr PLAN OF TREATMENT No Information
== END 2024-12-03 13:24 | disposition home or self-care (01) ==
PROVIDERS: PCP Internal Medicine; Visit Provider Physician Assistant Medical
DX: K52.9 Noninfective gastroenteritis and colitis, unspecified (principal); A08.4 Viral intestinal infection, unspecified

== ENCOUNTER → 2024-12-03 11:48 | Outpatient (BNVA) | payer OTHER, SELFPAY | PROVIDERS: PCP Internal Medicine | DX: A08.4 Viral intestinal infection, unspecified (principal) ==

== ENCOUNTER 2024-12-06 08:49 | Outpatient (REF) | payer OTHER, SELFPAY ==
--- OUTSIDE RECORDS SUMMARY | 2024-12-06 11:00 | XMS_ITS ---
Author Organization [facility] Address [address] [place] [address] Care Team Providers Care Fiscal Assistant Name Role Phone Johana Gay Primary Care Provider Unavailab Isaías Canela Jr [phone] REASON FOR VISIT pathology Encounters Encounter Location Date Provider Diagnosis [facility] [address] [place] [address] 02/19/2024 Isaías Ingram Jr PLAN OF TREATMENT No Information
--- OUTSIDE RECORDS SUMMARY | 2024-12-06 11:00 | XMS_ITS ---
Author Organization [facility] Address [address] [place] [address] Care Team Providers Care Road Packer Operator Name Role Phone Johana Gay Primary Care Provider Unavailab Isaías Canela Jr REASON FOR VISIT SCREENING COLON, EPIGASTRIC PAIN Encounters Encounter Location Date Provider Diagnosis [facility] [address] [place] [address] 02/20/2024 Isaías Ingram Jr PLAN OF TREATMENT No Information
--- OUTSIDE RECORDS SUMMARY | 2024-12-06 11:00 | XMS_ITS | Patient Health Record ---
Author Organization [facility] Address [address] [place] [address] Care Team Providers Care Laboratory Scientist Name Role Phone Deidra Johana Primary Care Provider UnavailIsaías Zaragoza Jr Unavailable ALLERGIES No Known Allergies RESULTS Component Value Reference Range Notes Pathology Reviewed date:02/19/2024 10:48:03 AM Interpretation: Performing Lab:[facility], [address] [place] [phone] Notes/Report: REASON FOR REFERRAL No Information MEDICATIONS [...] Problem Colon cancer screening (Z12.11) Active confirmed 609558443 Problem Gastro-esophageal reflux disease without esophagitis (K21.9) Active confirmed Gastro-esophag eal reflux disease without esophagitis (530383458) Problem Gastroesophageal reflux disease without esophagitis (K21.9) Active confirmed 137067457 Problem Abnormal barium swallow (R93.3) Active confirmed 012231962 Problem H. pylori infection (A04.8) Active confirmed 158635221 VITAL SIGNS Temperature 98.0 degrees Fahrenheit 01/05/2024 Blood pressure diastolic 00 mm Hg 01/05/2024 Height 5 ft 2 in in 01/05/2024 Blood pressure systolic 000 mm Hg 01/05/2024 Weight 121 lb 8 oz lbs 01/05/2024 BMI 22.22 kg/m2 01/05/2024 Encounters Encounter Location Date Provider Diagnosis [facility] [place] [address] [place] [phone] 02/13/2024 Isaías Ingram Jr Encounter for screening colonoscopy Z12.11 ; Colon polyps K63.5 ; Other specified bacterial intestinal infections A04.8 and Gastro-esophageal reflux disease without esophagitis K21.9 [facility] [address] [place] [phone] 02/20/2024 Isaías Ingram Jr [facility] [address] [place] [phone] 01/05/2024 Isaías Ingram Jr Gastroesophageal reflux disease without esophagitis K21.9 ; Colon cancer screening Z12.11 ; H. pylori infection A04.8 and Abnormal barium swallow R93.3 [facility] [address] [address] 01/15/2024 Isaías Ingram Jr [facility] [address] [place] [phone] 01/15/2024 Isaías Ingram Jr [facility] [address] [place] [phone] 02/19/2024 Isaías Ingram Jr ASSESSMENTS Encounter Date [...] Insured Coverage Start Date Coverage End Date Vincentian Plan Level Vial Inspector And Tester s [address] [place] [id number] RAHEEM DOUGLAS Self - patient is the insured MEDICAL (GENERAL) HISTORY Medical History History ICD Code Hypertension Hyperlipidemia Urinary incontinence Hypothyroidism Gastroesophageal reflux disease Surgical History Surgery Date(Month/Year)
--- OUTSIDE RECORDS SUMMARY | 2024-12-06 11:00 | XMS_ITS ---
Author Organization [facility] Address [address] [place] [address] Care Team Providers Care Refiner Operator Name Role Phone Johana Gay Primary Care Provider Unavailab Isaías Canela Jr REASON FOR VISIT screening,gerd PROBLEMS Problem Type ICD Code Onset Dates Problem Status W/U Status Risk SNOMED Code Notes Problem Gastro-esophagea l reflux disease without esophagitis (K21.9) Active confirmed Gastro-esophage al reflux disease without esophagitis (804558740) Encounters Encounter Location Date Provider Diagnosis [facility] [place] [address] [place], [place] [phone] 02/13/2024 Isaías Ingram Jr Encounter for screening [...]
[2024-12-07 07:08] LABS: Adenovirus F 40/41 Not Detected (Not Detect.); Astrovirus Not Detected (Not Detect.); Campylobacter Not Detected (Not Detect.); Cryptosporidium Not Detected (Not Detect.); Cyclospora cayetanensis Not Detected (Not Detect.); E. coli EAEC Not Detected (Not Detect.); E. coli EPEC Not Detected (Not Detect.); E. coli ETEC Not Detected (Not Detect.); E. coli STEC Not Detected (Not Detect.); Entamoeba histolytica Not Detected (Not Detect.); Giardia lamblia Not Detected (Not Detect.); Norovirus GI/GII Not Detected (Not Detect.); Plesiomonas shigelloides Not Detected (Not Detect.); Rotavirus A Not Detected (Not Detect.); Salmonella Not Detected (Not Detect.); Sapovirus Not Detected (Not Detect.); Shigella sp./EIEC Not Detected (Not Detect.); Vibrio Not Detected (Not Detect.); Vibrio Cholerae Not Detected (Not Detect.); Yersinia enterocolitica Not Detected (Not Detect.)
== END 2024-12-06 08:50 | disposition home or self-care (01) ==
LOC: HO.HMGCLNP 08:49
PROVIDERS: Visit Provider Physician Assistant Medical
DX: K52.9 Noninfective gastroenteritis and colitis, unspecified (principal)
CPT/HCPCS: 87507

== ENCOUNTER 2024-12-16 08:43 | Outpatient (REF) | payer OTHER, SELFPAY ==
--- OUTSIDE RECORDS SUMMARY | 2024-12-16 09:30 | XMS_ITS | Patient Health Record ---
Author Organization [facility] Address [address] [place] [address] Care Team Providers Care Band Master Name Role Phone Johana Gay Primary Care Provider Unavailab Isaías Canela Jr Unavailable Allergies No Known Allergies Results Component Value Reference Range Notes Pathology Reviewed date:02/19/2024 10:48:03 AM Interpretation: Performing Lab:[facility], [address] [place] [phone] Notes/Report: Name: Antione Albrightdalia Age/Sex: 53/F : 1970 Unit#: [id number] Attend Dr: Isaías Ingram MD Re02/13/24 Status : [facility] Location: [facility] Disch: SPEC : [id number] RECD : 02/13/24 STATUS: ANGELA CHAPA NUM: [id number] MARCIN: 02/13/[address] [facility] DR: Isaías Ingram MD ENTERED: 02/13/24 33 SP TYPE: Surgical OTHR DR: Johana Gay MD ORDERED: HE Stain/12 , Gross Micro L4/5, IHC, Special st. 2/3, H. pylori, AB/PAS/3 Diagnosis A. Duodenum, biopsy: Duodenal mucosa within normal limits; preserved villous architecture and no increased intraepithelial lymphocytes seen. B. Stomach, antrum, biopsy: Gastric antral mucosa with mild chronic inactive gastritis; negative for Helicob acter pylori, intestinal metaplasia and dysplasia. C. Gastroesophageal junction, biopsy: Squamocolumnar junctional mucosa with mild chronic inflammation ; negative for intestinal metaplasia and dysplasia. D. Colon, polyp at 9 0 cm, polypectomy: Clinically polypoid colonic mucosa noted; negative for a hyper plastic or neoplastic process. E. Colon, polyp at 6 5 cm, polypectomy: Tubular adenoma; negative for high-grade dysplasia. Clinical History Pre-Op Dx: Gastro-es ophageal reflux disease without esophagitis Post-Op Dx: Gastritis, colon polyps Microscopic Description Microscopic sections reviewed. No metaplastic changes are seen, supported by AB/PAS stains (A-C); no Helicobact er organisms are seen, supported by H. pylori immunostain (B). Material Received A. Duodenum bx B. Antrum bx C. EG junction D. Polyp at 90 E. Polyp at 65 Gross Description Received in five parts. Part A: Received in formalin labeled ?duodenum bx's? are 2 mejía-pink irregular tissue fragments measuring 0.25 and 0.35 cm, submitted in toto in a cassette labeled A. Part B: Received in formalin labeled ?antrum bx's (sic)? is a 0.25 cm mejía irregular tissue fragment, submitted in toto in a cassette labeled B. CONTINUED ON NEXT PAGE Name: Coby Albright Age/Sex: 53/F : 1970 Unit#: [id number] Attend Dr: Isaías Ingram MD Re02/13/24 Status : [facility] Location: [facility] Disch: SPEC : [id number] RECD : 02/13/24 STATUS: ANGELA CHAPA NUM: [id number] MARCIN: 02/13/[address] [facility] DR: Isaías Ingram MD ENTERED: 02/13/24 33 SP TYPE: Surgical OTHR DR: Johana Gay MD ORDERED: HE Stain/12 , Gross Micro L4/5, IHC, Special st. 2/3, H. pylori, AB/PAS/3 Gross Description (Continued) Part C: Received in formalin labeled ?EG junction? are 2 mejía-pink irregular tissue fragments each measu ring 0.3 cm, submitted in toto in a cassette labeled C. Part D: Received in formalin labeled ?polyp at 90? are 2 mejía-pink irregular tissue fragments each measu ring 0.25 cm, submitted in toto in a cassette labeled D. Part E: Received in formalin labeled ?polyp at 65 cm? are 2 mejía-pink irregular tissue fragments each measu ring 0.25 cm, submitted in toto in a cassette labeled E. CEDS Special stains order ed and performed: AB/PAS on A-C; immunostain for H. pylori on B. Copies To: Johana Gay MD [address] [place] [address] [address] [place] [id number] Isaías Ingram MD [address] [place] [address] [id number] [place] [id number] [phone] Signed (si gnature on file) Hyun Wilcox MD 02/16/24 1039 END OF REPORT Reason For Referral No Information Medications Medication SIG (Take, Route, Frequency, Duration) Notes Start Date End Date Status Rosuvastatin Calcium 40 MG TAKE 1 TABLET BY MOUTH EVERY DAY Oral for 30 Active Levothyroxine Sodium 50 MCG TAKE 1 TABLE T BY MOUTH EVERY DAY Oral for 30 Active Omeprazole 20 MG TAKE 1 CAPSULE BY MO UT EVERY DAY Oral for 30 Active Multi Vitamin - 1 tablet Orally Once a day for 30 day(s) 01/05/2024 Active Immunizations Vaccine Route Administration Date Status Comme nts Influenza Unknown 07/29/2023 Administered Social History Tobacco Use: Social History Observation Description Date Details (start date - stop date) Never Smoker NA - NA Tobacco Use/Smoking Question Answer Notes Patient is a nonsmoker Alcohol Screen Question Answer Notes Did you have a drink containing alcohol in the p ast year? No Points 0 Interpretation Negative Problems Problem Type SNOMED Code ICD Code Onset Dates Problem Status W/U Status Risk Notes Problem 238754681 Colon cancer screening (Z12.11) Active confirmed Problem Gastro-esophage al reflux disease without esophagitis (066792747) Gastro-esophageal reflux disease without esophagitis (K21.9) Active confirmed Problem 289109933 Gastroesophageal reflux disease without esophagitis (K21.9) Active confirmed Problem 860595598 Abnormal barium swallow (R93.3) Active confirmed Problem 394366599 H. pylori infect ion (A04.8) Active confirmed Vital Signs Temperature 98.0 degrees Fahrenheit 01/05/2024 Blood pressure diastolic 00 mm Hg 01/05/2024 Height 5 ft 2 in in 01/05/2024 Blood pressure systolic 000 mm Hg 01/05/2024 Weight 121 lb 8 oz lbs 01/05/2024 BMI 22.22 kg/m2 01/05/2024 Encounters Encounter Location Date Provider Diagnosis [facility] [place] [address] [place] [phone] 02/13/2024 Isaías nIgram Jr Encounter for screening colonoscopy Z12.11 ; Colon polyps K63.5 ; Other specified bacterial intestinal infections A04.8 and Gastro-esophageal reflux disease without esophagitis K21.9 [facility] [address] [place] [phone] 01/05/2024 Isaías Ingram Jr Gastroesophageal reflux disease without esophagitis K21.9 ; Colon cancer screening Z12.11 ; H. pylori infection A04.8 and Abnormal barium swallow R93.3 [facility] [address] [place] [phone] 01/15/2024 Isaías Ingram Jr [facility] [address] [place] [phone] 01/15/2024 Isaías Ingram Jr [facility] [address] [place] [phone] 02/19/2024 Isaías Ingram Jr Assessments Encounter Date Diagnosis (ICD Code) Assessment Notes Treatment Notes Treatment Clinical Notes Section Notes 02/13/2024 Encounter for screening colonoscopy (ICD-10 - Z12.11) 02/13/2024 Colon polyps (ICD-10 - K63.5) 01/05/2024 Colon cancer screening (ICD-10 - Z12.11) We discussed her symptoms today. We discussed gastroesophageal reflux disease including pathophysiology. We discussed diet, lifestyle modifications, and weight management regarding the treatment of reflux. We reviewed her x-ray findings. We discussed H. pylori infection and risk factors for stomach cancer. She will undergo further evaluation with upper endoscopy because of her long-standing symptoms and the abnormal barium x-ray. Biopsies at that time will allow to check for H. pylori clearance. She is due for colon cancer screening. This will be arranged. She understands risks and benefits and agrees to proceed. 01/05/2024 Gastroesophageal reflux disease without esophagitis (ICD-10 - K21.9) Endoscopy material was printed We discussed her symptoms today. We discussed gastroesophageal reflux disease including pathophysiology. We discussed diet, lifestyle modifications, and weight management regarding the treatment of reflux. We reviewed her x-ray findings. We discussed H. pylori infection and risk factors for stomach cancer. She will undergo further evaluation with upper endoscopy because of her long-standing symptoms and the abnormal barium x-ray. Biopsies at that time will allow to check for H. pylori clearance. She is due for colon cancer screening. This will be arranged. She understands risks and benefits and agrees to proceed. 02/13/2024 Other specified bacterial intestinal infections (ICD-10 - A04.8) 01/05/2024 H. pylori infection (ICD-10 - A04.8) We discussed her symptoms today. We discussed gastroesophageal reflux disease including pathophysiology. We discussed diet, lifestyle modifications, and weight management regarding the treatment of reflux. We reviewed her x-ray findings. We discussed H. pylori infection and risk factors for stomach cancer. She will undergo further evaluation with upper endoscopy because of her long-standing symptoms and the abnormal barium x-ray. Biopsies at that time will allow to check for H. pylori clearance. She is due for colon cancer screening. This will be arranged. She understands risks and benefits and agrees to proceed. 02/13/2024 Gastro-esophageal reflux disease without esophagitis (ICD-10 - K21.9) 01/05/2024 Abnormal barium swallow (ICD-10 - R93.3) We discussed her symptoms today. We discussed gastroesophageal reflux disease including pathophysiology. We discussed diet, lifestyle modifications, and weight management regarding the treatment of reflux. We reviewed her x-ray findings. We discussed H. pylori infection and risk factors for stomach cancer. She will undergo further evaluation with upper endoscopy because of her long-standing symptoms and the abnormal barium x-ray. Biopsies at that time will allow to check for H. pylori clearance. She is due for colon cancer screening. This will be arranged. She understands risks and benefits and agrees to proceed. Plan Of Treatment Future Test Test Name Order Date UPPER GI ENDOSCOPY 01/05/2024 COLONOSCOPY 01/05/2024 Insurance Providers Payer Name Payer Address Payer Phone Subscriber Number Group Number Insured Name Patient Relationship to Insured Coverage Start Date Coverage End Date Israeli Plan Zipper Sewing Machine Operator s [address] [place] [id number] ALBRIGHT Self - patient is the insured Medical (General) History Medical History History ICD Code Hypertension Hyperlipidemia Urinary incontinence Hypothyroidism Gastroesophageal reflux disease Surgical History Surgery Date(Month/Year)
--- OUTSIDE RECORDS SUMMARY | 2024-12-16 09:30 | XMS_ITS ---
Author Organization [facility] Address [address] [place] [address] Care Team Providers Care Copper Miner Name Role Phone Johana Gay Primary Care Provider Unavailab Isaías Canela Jr REASON FOR VISIT pathology Encounters Encounter Location Date Provider Diagnosis [facility] [address] [place] [phone] 02/19/2024 Isaías Ingram Jr Plan Of Treatment No Information Progress Notes * RYLAND DOUGLASB: 3 (53 yo F)Acc No.[id number]:02/19/2024 Patient:?JASON DOUGLASLIA :1970???Age:53 Y???Sex:Female Address:[facility] [address], [place], [address] * true * Date:? Generated for Sonidoi mickie/Sana/eTransmitting on:?12/16/2024 09:29 AM EDT
--- OUTSIDE RECORDS SUMMARY | 2024-12-16 09:30 | XMS_ITS ---
Author Organization [facility] Address [address] [place] [address] Care Team Providers Care Linotype Machinist Apprentice Name Role Phone Johana Gay Primary Care Provider Unavailab Isaías Canela Jr Unavailable REASON FOR VISIT screening,gerd Problems Problem Type SNOMED Code ICD Code Onset Dates Problem Status W/U Status Risk Notes Problem Gastro-esophagea l reflux disease without esophagitis (250015606) Gastro-esophage al reflux disease without esophagitis (K21.9) Active confirmed Encounters Encounter Location Date Provider Diagnosis [facility] Outpatient [address] [place], [place] [id number] 02/13/2024 Isaías Ingram Jr Encounter for screening colonoscopy Z12.11 ; Colon polyps K63.5 ; Other specified bacterial intestinal infections A04.8 and Gastro-esophageal reflux disease without esophagitis K21.9 Assessments Encounter Date Diagnosis (ICD Code) Assessment Notes Treatment Notes Treatment Clinical Notes Section Notes 02/13/2024 Encounter for screening colonoscopy (ICD-10 - Z12.11) 02/13/2024 Colon polyps (ICD-10 - K63.5) 02/13/2024 Other specified bacterial intestinal infections (ICD-10 - A04.8) 02/13/2024 Gastro-esophagea l reflux disease without esophagitis (ICD-10 - K21.9) Plan Of Treatment No Information Progress Notes * ALEXIS DOUGLASADOB: 3 (53 yo F)Acc No.[id number]:02/13/2024 EGD and COL/MAC Patient:?RAHEEM DOUGLAS Provider:?Isaías Ingram MD :1970???Age:53 Y???Sex:Female D ate:02/13/2024 Address:[address] [address], [place] Pcp:Johana Gay Subjective: * Chief Complaints: * ???1. Screening,gerd. * Medical History:? Objective: * Vitals:? Assessment: * Assessment: 1.?Encounter for screening c olonoscopy - Z12.11 (Primary)???2.?Colon polyps - K63.5???3.?Other specified bacterial intestinal infections - A04.8???4.?Gastro-esophageal reflux disease without esophagitis - K21.9??? Plan: * Treatment: * Procedure Codes:?06267 COLON OSCOPY AND BIOPSY, 89044 UPPER GI ENDOSCOPY, BIOPSY * * The named appointment provid er may or may not be the originator of this progress note, and it is not deemed complete until electronically signed by the appointment provider. Sign off status: Pending * Provider:?Isaías Ingram MD Date:?0 02/13/2024 Generated for Elli corado/Sana/eTjoesmitting on:?12/16/2024 09:29 AM EDT
--- OUTSIDE RECORDS SUMMARY | 2024-12-16 09:30 | XMS_ITS ---
Author Organization [facility] Address [address] [place] [address] Care Team Providers Care Laundry Assistant Name Role Phone Johana Gay Primary Care Provider Unavailab Isaías Canela Jr REASON FOR VISIT SCREENING COLON, EPIGASTRIC PAIN Encounters Encounter Location Date Provider Diagnosis [facility] [address] [place] [address] [place] [address] 02/20/2024 Isaías Ingram Jr Plan Of Treatment No Information Progress Notes * ALEXIS DOUGLASADOB: 3 (53 yo F)Acc No.[id number]:02/20/2024 Progress Notes Patient:RAHEEM MENON Provider:?Isaías Ingram MD :1970???Age:53 Y???Sex:Female D ate:02/20/2024 Address:[facility] [address], [place] Pcp:Johana Gay Subjective: * Chief Complaints: * ???1. SCREENING COLON, EPIGA STRIC PAIN. * Medical History:? Objective: * Vitals:? Assessment: Plan: * Treatment: * * The named appointment provid er may or may not be the originator of this progress note, and it is not deemed complete until electronically signed by the appointment provider. Sign off status: Pending * Provider:?Isaías Ingram MD Date:?0 02/20/2024 Generated for Elli corado/Sana/eTransmitting on:?12/16/2024 09:29 AM EDT
[2024-12-16 10:11] LABS: Alanine Aminotransferase 45 U/L (0-31); Albumin Level 4.3 g/dL (3.5-5.0); Alkaline Phosphatase 130 U/L (39-117); Anion Gap 8 (12-20); Aspartate Amino Transferase 24 U/L (5-31); Bilirubin Total 0.6 mg/dL (0.0-1.0); Blood Urea Nitrogen 9 mg/dL (9-16); Calcium 9.6 mg/dL (8.4-10.2); Carbon Dioxide 30 mmol/L (22-29); Chloride 108 mmol/L (96-108); Cholesterol 122 mg/dL (<200); Estimated Glomerular Filt Rate > 60; Glucose Random 95 mg/dL (60-115); HDL Cholesterol 48 mg/dL (>40); LDL Cholesterol Calculated 56 mg/dL (<100); Potassium 4.1 mmol/L (3.3-5.1); Sodium 142 mmol/L (135-145); Total Protein 7.9 g/dL (6.5-8.0); Triglycerides 91 mg/dL (<150)
[2024-12-16 10:34] LABS: Thyroid Stimulating Hormone 2.13 uIU/mL (0.32-4.0)
== END 2024-12-16 08:44 | disposition home or self-care (01) ==
LOC: HO.LAB 08:43
PROVIDERS: PCP Internal Medicine; Visit Provider Internal Medicine
DX: E03.8 Other specified hypothyroidism (principal); E78.00 Pure hypercholesterolemia, unspecified; K29.60 Other gastritis without bleeding; R11.0 Nausea
CPT/HCPCS: 36415; 80053; 80061; 84443

== ENCOUNTER 2024-12-30 13:32 | Outpatient (AMB) | payer OTHER, SELFPAY ==
--- NOTE | 2024-12-30 13:38 | A.OFFVIS_ITS ---
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 No discoloration, no nipple draining. Medical Legal Investigator: Medical Legal Investigator Present (Cindy) Accompanied by: Self / Same As Patient Allergies No Known Allergies Allergy (Verified 12/30/24 13:43) Is last menstrual period known: No Post menopausal: Yes Patient : No HPI Comments Details: Presenting for annual exam. No complaints. Last Pap/HPV was negative in 02/25 Last Mammogram was BI-RADS 2 in 12/27, next screening mammogram is scheduled on 01/05/2025 Last Colonoscopy was done in 02/26 [facility] Medical History (Updated 12/30/24 @ 13:46 by Anthony Mcdaniel MD) GERD (gastroesophageal reflux disease) Urinary incontinence Thyroid disease Dysplasia of cervix, low grade (JONES 1) High cholesterol Hypertension Surgical History Hx of dilation and curettage Family History Mother Breast CA HTN (hypertension) Maternal Grandmother Diabetes Maternal Uncle Skin cancer Social History Household Members: Spouse Housing: Apartment Alcohol intake: former Patient Tobacco Use Status: Former Tobacco user Current occupational status: employed 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 Sexual orientation: Straight/Heterosexual Gender identity: Female Female Reproductive History Menstrual Age of Menarche: 19 Total pregnancies: 2 Ab spontaneous: 2 Date of last pap smear: 02/11/23 (negative pap smear, negative hpv) Date of Mammogram: 12/24/23 (bi rad 2) Review of Systems Const All systems reviewed & are unremarkable except as noted in HPI and below Card Reports as per HPI Resp Reports as per HPI GI Reports as per HPI and Reports no additional complaints Reports as per HPI Physical Exam Vital Signs: Last Vital Signs BP 110/72 12/30/24 13:47 BMI result Body Mass Index 20.8 Const General: cooperative, healthy appearing and comfortable Chest Chest palpation & inspection: normal inspection of the chest and normal palpation of entire chest wall Breast/axilla inspection: normal inspection of the breasts and normal inspection of the axillae Breast/axilla palpation: normal palpation of the breasts, normal palpation of the axillae and no axillary lymphadenopathy Resp Effort & Inspection: normal respiratory effort Auscultation: clear to auscultation bilaterally Percussion: percussion normal Cardio Palpation: normal PMI Rate: regular rate Rhythm: regular rhythm Heart sounds: no murmurs and no rubs Peripheral pulses: Peripheral pulses 2+ throughout GI Inspection: Yes normal to inspection Palpation (GI): Soft to palpation, nontender, no guarding, not rigid and No hepatosplenomegaly present Percussion: Yes normal to percussion Auscultation: normal bowel sounds Rectal Exam - Female: deferred General: Yes bladder normal to palpation External Female Exam: No lesion Speculum Exam - Vagina: normal appearance of the vagina, normal palpation, vidhya l vaginal discharge and not erythematous Speculum Exam - Cervix: normal appearance of the cervix and normal palpation Bimanual exam- vagina & uterus: normal bimanual exam, normal palpation, uterine size normal, bladder normal to palpation, consistency normal and normal palpation Bimanual Exam- Adnexa, other: normal adnexae, no masses and no tenderness Assessment & Plan Assessment & Plan (1) Well woman exam: Comment: JONES 1 in 2020 followed by negative co testing in 02/25 Code(s): Z01.419 - Encounter for gynecological examination (general) (routine) without abnormal findings Category: Medical Plan: Co testing done. Counseled the patient about the recommended dietary allowance of 1200 mg of Calcium & 600 IU of vitamin D. Mammogram scheduled in 01/28 The patient was instructed to perform monthly self-breast exams and schedule annual exam in a year. All questions answered and the patient verbalized understanding. Coding Level of Care Code Est Pt Prev Care 40-64y(67438) Diagnoses Well woman exam Z01.419
[2024-12-30 13:47] VITALS: BP 110/72; BMI 20.8
--- OUTSIDE RECORDS SUMMARY | 2024-12-30 16:54 | XMS_ITS ---
Author Organization [facility] Address [address] [place] [address] Care Team Providers Care Remodeler Name Role Phone Johana Gay Primary Care Provider Unavailab Isaías Canela Jr REASON FOR VISIT pathology Encounters Encounter Location Date Provider Diagnosis [facility] [address] [place] [address] 02/19/2024 Isaías Ingram Jr Plan Of Treatment No Information Progress Notes * RYLAND DOUGLASB: 3 (53 yo F)Acc No.[id number]:02/19/2024 Patient:?JASON DOUGLASLIA :1970???Age:53 Y???Sex:Female Address:[address] [address], [place], [address] * true * Date:? Generated for Sonidoi mickie/Sana/eTransmitting on:?12/30/2024 04:54 PM EDT
--- OUTSIDE RECORDS SUMMARY | 2024-12-30 16:54 | XMS_ITS ---
Author Organization [facility] Address [address] [place] [address] Care Team Providers Care Hat Braider Name Role Phone Johana Gay Primary Care Provider Unavailab Isaías Canela Jr Unavailable [phone] REASON FOR VISIT screening,gerd Problems Problem Type SNOMED Code ICD Code Onset Dates Problem Status W/U Status Risk Notes Problem Gastro-esophagea l reflux disease without esophagitis (248003622) Gastro-esophage al reflux disease without esophagitis (K21.9) Active confirmed Encounters Encounter Location Date Provider Diagnosis [facility] [place] [address] [place], [place] [phone] 02/13/2024 Isaías Ingram Jr Encounter for screening [...] Information Progress Notes * ALEXIS DOUGLASADOB: 3 (54 yo F)Acc No.[id number]:02/13/2024 EGD and COL/MAC Patient:?RAHEEM DOUGLAS Provider:?Isaías Ingram MD :1970???Age:53 Y???Sex:Female D ate:02/13/2024 Address:[facility] [address], [place] Pcp:Johana Gay Subjective: * Chief Complaints: * ???1. Screening,gerd. * Medical History:? Objective: * Vitals:? Assessment: * Assessment: 1.?Encounter for screening c olonoscopy - Z12.11 (Primary)???2.?Colon polyps - K63.5???3.?Other specified bacterial intestinal infections - A04.8???4.?Gastro-esophageal reflux disease without esophagitis - K21.9??? Plan: * Treatment: * Procedure Codes:?66858 COLON OSCOPY AND BIOPSY, 40444 UPPER GI ENDOSCOPY, BIOPSY * * The named appointment provid er may or may not be the originator of this progress note, and it is not deemed complete until electronically signed by the appointment provider. Sign off status: Pending * Provider:?Isaías Ingram MD Date:?0 02/13/2024 Generated for Elli corado/Sana/eTjoesmitting on:?12/30/2024 04:54 PM EDT
--- OUTSIDE RECORDS SUMMARY | 2024-12-30 16:55 | XMS_ITS ---
Author Organization [facility] Address [address] [place] [address] Care Team Providers Care Postmaster Relief Name Role Phone Johana Gay Primary Care Provider Unavailab Isaías Canela Jr [phone] REASON FOR VISIT SCREENING COLON, EPIGASTRIC PAIN Encounters Encounter Location Date Provider Diagnosis [facility] [address] [place] [address] [place] [address] 02/20/2024 Isaías Ingram Jr Plan Of Treatment No Information Progress Notes * ALEXIS DOUGLASADOB: 3 (54 yo F)Acc No.[id number]:02/20/2024 Progress Notes Patient:RAHEEM MENON Provider:?Isaías Ingram MD :1970???Age:53 Y???Sex:Female D ate:02/20/2024 Address:[facility] [place], [place] [facility] Pcp:Johana Gay Subjective: * Chief Complaints: * [...] MD Date:?0 02/20/2024 Generated for Elli corado/Sana/eTransmitting on:?12/30/2024 04:54 PM EDT
--- OUTSIDE RECORDS SUMMARY | 2024-12-30 16:55 | XMS_ITS | Patient Health Record ---
Author Organization [facility] Address [address] [place] [address] Care Team Providers Care Print And Pattern Designer Name Role Phone Johana Gay Primary Care Provider Unavailab Isaías Canela Jr Unavailable Allergies No Known Allergies Results Component Value Reference Range Notes Pathology Reviewed date:02/19/2024 10:48:03 AM Interpretation: Performing Lab:[facility], [address] [place] [id number] Notes/Report: Name: Antione Albrightdalia Age/Sex: 53/F : 1970 Unit#: [id number] Attend Dr: Isaías Ingram MD Re02/13/24 Status : [facility] Location: [facility] Disch: SPEC : [id number] RECD : 02/13/24 STATUS: ANGELA CHAPA NUM: [id number] MARCIN: 02/13/[address] [facility] [address]: Isaías Ingram MD ENTERED: 02/13/24 33 [...] Coby Albright Age/Sex: 53/F : 1970 Unit#: [id number] Attend Dr: Isaías Ingram MD Re02/13/24 Status : [facility] Location: [facility] Disch: SPEC : [id number] RECD : 02/13/24 STATUS: ANGELA CHAPA NUM: [id number] MARCIN: 02/13/[address] [facility] [address]: Isaías Ingram MD ENTERED: 02/13/24 33 [...] on B. Copies To: Johana Gay MD [address] [place] [address] [address] [place] [id number] Isaías Ingram MD [address] [place] [address] [address] [place] [id number] [phone] Signed (si gnature on file) Hyun Wilcox [...] Problem Status W/U Status Risk Notes Problem 313040264 Colon cancer screening (Z12.11) Active confirmed Problem Gastro-esophage al reflux disease without esophagitis (904462139) Gastro-esophageal reflux disease without esophagitis (K21.9) Active confirmed Problem 677313531 Gastroesophageal reflux disease without esophagitis (K21.9) Active confirmed Problem 350775083 Abnormal barium swallow (R93.3) Active confirmed Problem 570896611 H. pylori infect ion (A04.8) Active confirmed Vital Signs Temperature 98.0 degrees Fahrenheit 01/05/2024 Blood pressure diastolic 00 mm Hg 01/05/2024 Height 5 ft 2 in in 01/05/2024 Blood pressure systolic 000 mm Hg 01/05/2024 Weight 121 lb 8 oz lbs 01/05/2024 BMI 22.22 kg/m2 01/05/2024 Encounters Encounter Location Date Provider Diagnosis [facility] Outpatient [address] [place] [phone] 02/13/2024 Isaías Ingram Jr Encounter for screening colonoscopy Z12.11 ; Colon polyps K63.5 ; Other specified bacterial intestinal infections A04.8 and Gastro-esophageal reflux disease without esophagitis K21.9 [facility] [address] [place] [address] 01/05/2024 Isaías Ingram Jr Gastroesophageal reflux disease without esophagitis K21.9 ; Colon cancer screening Z12.11 ; H. pylori infection A04.8 and Abnormal barium swallow R93.3 [facility] [address] [place] [address] 01/15/2024 Isaías Ingram Jr [facility] [address] [place] [address] 01/15/2024 Isaías Ingram Jr [facility] [address] [place] [address] 02/19/2024 Isaías Ingram Jr Assessments Encounter Date [...] Insured Coverage Start Date Coverage End Date [place] Plan Billing Clinician s [address] [place] [id number] COBY ALBRIGHT Self - patient is the insured Medical (General) History Medical History History ICD Code Hypertension Hyperlipidemia Urinary incontinence Hypothyroidism Gastroesophageal reflux disease Surgical History Surgery Date(Month/Year)
== END 2024-12-30 14:09 | disposition home or self-care (01) ==
LOC: HO.HWS 13:32
PROVIDERS: PCP Internal Medicine; Visit Provider Obstetrics & Gynecology
DX: Z01.419 Encounter for gynecological examination (general) (routine) without abnormal findings (principal)
CPT/HCPCS: 99396; 99459

== ENCOUNTER 2024-12-30 13:32 | Outpatient (REF) | payer OTHER, SELFPAY ==
[2025-01-04 14:55] LABS: HPV Genotype 16 Negative (Negative); HPV Genotype 18 Negative (Negative); HPV High Risk Negative (Negative)
== END 2024-12-30 13:33 | disposition home or self-care (01) ==
LOC: HO.LNP 13:32
PROVIDERS: PCP Internal Medicine; Visit Provider Obstetrics & Gynecology
DX: Z01.419 Encounter for gynecological examination (general) (routine) without abnormal findings (principal)
CPT/HCPCS: 87626; 88175

== ENCOUNTER 2025-01-05 10:09 | Outpatient (REF) | payer OTHER, SELFPAY ==
--- OUTSIDE RECORDS SUMMARY | 2025-01-05 11:45 | XMS_ITS ---
Author Organization [facility] Address [address] [place] [address] Care Team Providers Care Advertising Representative Name Role Phone Johana Gay Primary Care Provider Unavailab Isaías Canela Jr Unavailable [phone] REASON FOR VISIT screening,gerd Problems Problem Type SNOMED Code ICD Code Onset Dates Problem Status W/U Status Risk Notes Problem Gastro-esophagea l reflux disease without esophagitis (759418485) Gastro-esophage al reflux disease without esophagitis (K21.9) Active confirmed Encounters Encounter Location Date Provider Diagnosis [facility] Outpatient [address] [place], [place] [phone] 02/13/2024 Isaías Ingram Jr Encounter for screening [...] * ALEXIS DOUGLASADOB: 3 (54 yo F)Acc No.[id number]:02/13/2024 EGD and COL/MAC Patient:?RAHEEM DOUGLAS Provider:?Isaías Ingram MD :1970???Age:53 Y???Sex:Female D ate:02/13/2024 Address:[facility] [address] [place] Pcp:Johana Gay Subjective: * Chief Complaints: * ???1. Screening,gerd. * Medical History:? Objective: * Vitals:? Assessment: * Assessment: 1.?Encounter for screening c olonoscopy - Z12.11 (Primary)???2.?Colon polyps - K63.5???3.?Other specified bacterial intestinal infections - A04.8???4.?Gastro-esophageal reflux disease without esophagitis - K21.9??? Plan: * Treatment: * Procedure Codes:?53982 COLON OSCOPY AND BIOPSY, 45653 UPPER GI ENDOSCOPY, BIOPSY * * The named appointment provid er may or may not be the originator of this progress note, and it is not deemed complete until electronically signed by the appointment provider. Sign off status: Pending * Provider:?Isaías Ingram MD Date:?0 02/13/2024 Generated for Elli corado/Sana/eTjoesmitting on:?01/05/2025 11:45 AM EDT
--- OUTSIDE RECORDS SUMMARY | 2025-01-05 11:46 | XMS_ITS ---
Author Organization [facility] Address [address] [place] [address] Care Team Providers Care Cytogenetic Technologist Name Role Phone Johana Gay Primary Care Provider Unavailab Isaías Canela Jr REASON FOR VISIT pathology Encounters Encounter Location Date Provider Diagnosis [facility] [address] [place] [address] 02/19/2024 Isaías Ingram Jr Plan Of Treatment No Information Progress Notes * RYLAND DOUGLASB: 3 (53 yo F)Acc No.[id number]:02/19/2024 Patient:?JASON DOUGLASLIA :1970???Age:53 Y???Sex:Female Address:[facility] [address], [place], [address] * true * Date:? Generated for Sonidoi mickie/Sana/eTransmitting on:?01/05/2025 11:45 AM EDT
--- OUTSIDE RECORDS SUMMARY | 2025-01-05 11:46 | XMS_ITS | Patient Health Record ---
Author Organization [facility] Address [address] [place] [address] Care Team Providers Care Flat Surfacer Jewel Name Role Phone Johana Gay Primary Care Provider Unavailab Isaías Canela Jr Unavailable [phone] Allergies No Known Allergies Results Component Value Reference Range Notes Pathology Reviewed date:02/19/2024 10:48:03 AM Interpretation: Performing Lab:[facility], [address] [place] [address] Notes/Report: Name: Antione Albrightdalia Age/Sex: 53/F : 1970 Unit#: [id number] Attend Dr: Isaías Ingram MD Re02/13/24 Status : [facility] Location: [facility] Disch: SPEC : [id number] RECD : 02/13/24 STATUS: ANGELA CHAPA NUM: [id number] MARCIN: 02/13/24 [facility] [address]: Isaías Ingram MD ENTERED: 02/13/24 [...] Coby Albright Age/Sex: 53/F : 1970 Unit#: [id number] Attend Dr: Isaías Ingram MD Re02/13/24 Status : [facility] Location: [facility] Disch: SPEC : [id number] RECD : 02/13/24 STATUS: ANGELA CHAPA NUM: [id number] MARCIN: 02/13/[address] [facility] [address]: Isaías Ingram MD ENTERED: 02/13/24 [...] on B. Copies To: Johana Gay MD [address] [place] [address] [address] [place] [id number] Isaías Ingram MD [address] [place] [address] [address] [place] [id number] [phone] Signed (si gnature on file) Hyun Wilcox [...] Problem Status W/U Status Risk Notes Problem 528370761 Colon cancer screening (Z12.11) Active confirmed Problem Gastro-esophage al reflux disease without esophagitis (503810966) Gastro-esophageal reflux disease without esophagitis (K21.9) Active confirmed Problem 339996453 Gastroesophageal reflux disease without esophagitis (K21.9) Active confirmed Problem 370284799 Abnormal barium swallow (R93.3) Active confirmed Problem 015919407 H. pylori infect ion (A04.8) Active confirmed Encounters Encounter Location Date Provider Diagnosis [facility] [place] [address] [place], [place] [phone] 02/13/2024 Isaías Ingram Jr Encounter for screening colonoscopy Z12.11 ; Colon polyps K63.5 ; Other specified bacterial intestinal infections A04.8 and Gastro-esophageal reflux disease without esophagitis K21.9 [facility] [address] [place] [address] 01/15/2024 Isaías Ingram Jr [facility] [address] [place] [address] [address] [place] [address] 01/15/2024 Isaías Ingram Jr [facility] [address] [place] [phone] 02/19/2024 Isaías Ingram Jr Assessments Encounter Date Diagnosis (ICD Code) Assessment Notes Treatment Notes Treatment Clinical Notes Section Notes 02/13/2024 Encounter for screening colonoscopy (ICD-10 - Z12.11) 02/13/2024 Colon polyps (ICD-10 - K63.5) 02/13/2024 Other specified bacterial intestinal infections (ICD-10 - A04.8) 02/13/2024 Gastro-esophagea l reflux disease without esophagitis (ICD-10 - K21.9) Plan Of Treatment Future Test Test Name Order Date UPPER GI ENDOSCOPY 01/05/2024 COLONOSCOPY 01/05/2024 Insurance Providers Payer Name Payer Address Payer Phone Subscriber Number Group Number Insured Name Patient Relationship to Insured Coverage Start Date Coverage End Date [place] Plan Supervisor Histology s [address] [place] [id number] COBY ALBRIGHT Self - patient is the insured Medical (General) History Medical History History ICD Code Hypertension Hyperlipidemia Urinary incontinence Hypothyroidism Gastroesophageal reflux disease Surgical History Surgery Date(Month/Year)
--- OUTSIDE RECORDS SUMMARY | 2025-01-05 11:46 | XMS_ITS ---
Author Organization [facility] Address [address] [place] [address] Care Team Providers Care Rehabilitation Therapy Aide Name Role Phone Johana Gay Primary Care Provider Unavailab Isaías Canela Jr REASON FOR VISIT SCREENING COLON, EPIGASTRIC PAIN Encounters Encounter Location Date Provider Diagnosis [facility] [address] [place] [address] [place] [address] 02/20/2024 Isaías Ingram Jr Plan Of Treatment No Information Progress Notes * ALEXIS DOUGLASADOB: 3 (54 yo F)Acc No.[id number]:02/20/2024 Progress Notes Patient:RAHEEM MENON Provider:?Isaías Ingram MD :1970???Age:53 Y???Sex:Female D ate:02/20/2024 Address:[facility] [place], [place] [facility] Pcp:Johana Gay Subjective: * Chief Complaints: * [...] MD Date:?0 02/20/2024 Generated for Elli corado/Sana/eTransmitting on:?01/05/2025 11:45 AM EDT
== END 2025-01-05 10:10 | disposition home or self-care (01) ==
LOC: HO.MAMMO 10:09
PROVIDERS: PCP Internal Medicine; Visit Provider Internal Medicine
DX: Z12.31 Encounter for screening mammogram for malignant neoplasm of breast (principal)
CPT/HCPCS: 77063; 77067

== ENCOUNTER → 2025-01-05 10:15 | Outpatient (BNV) | payer OTHER, SELFPAY | PROVIDERS: PCP Internal Medicine; Visit Provider Internal Medicine | DX: Z12.31 Encounter for screening mammogram for malignant neoplasm of breast (principal) | CPT/HCPCS: 77063; 77067 ==